=== PATIENT | male | born 1995 | race Caucasian/White ===

== ENCOUNTER 2020-04-25 19:30 | Emergency (ER) | payer OTHER ==
[~2020-04-25] VITALS: Ht 172.7 cm; Wt 88.6 kg
[2020-04-25 19:41] VITALS: BP 120/61
[2020-04-25] MEDS ORDERED: SULF1TAB49 PO (20:14)
[2020-04-25] MEDS ORDERED: sulfamethoxazole/trimethoprim DS (800/160mg) tablet PO ONE (20:15)
[2020-04-25] MEDS ORDERED: ondansetron 4mg rapidly disintigrating tab PO ONE (20:15)
== END 2020-04-25 20:31 | disposition home or self-care (01) ==
LOC: ER 19:31
DX: L03.011 Cellulitis of right finger (principal)
CPT/HCPCS: 99283

== ENCOUNTER 2020-04-28 23:12 | Emergency (ER) | payer OTHER ==
[~2020-04-28] VITALS: Ht 172.7 cm; Wt 86.4 kg
[~2020-04-28 23:12] MED LIST: SULF1TAB49 PO
[2020-04-28] MEDS ORDERED: DOXY100C77 PO (23:53)
[2020-04-28] MEDS ORDERED: CEPH-572 PO (23:53)
[2020-04-29] MEDS ORDERED: LIDOcaine 1% W/epiNEPHrine 1:200,000 10ml vial IJ ONE
[2020-04-29] MEDS ORDERED: LIDOcaine 1% W/epiNEPHrine 1:100,000 20ml vial IJ ONE (00:05)
[2020-04-29 00:46] VITALS: BP 125/82
== END 2020-04-29 00:49 ==
LOC: ER 23:12
DX: L02.511 Cutaneous abscess of right hand (principal)
CPT/HCPCS: 10060; 26010; 99283